=== PATIENT | female | born 1940 | race Caucasian/White ===

== ENCOUNTER 2024-05-25 21:44 | Inpatient (IN) | payer OTHER, MEDICARE ==
[2024-05-25 22:40] LABS: HEMATOCRIT 29.7 % (32.4-45.2); HEMOGLOBIN 9.6 G/dL (10.7-15.3); MCH 26.1 pg (25.7-33.7); MCHC 32.3 g/dl (32.0-36.0); MEAN PLT VOLUME 8.7 fl (7.5-11.1); PLATELET COUNT 238.4 10^3/uL (134-434); RBC 3.67 10^6/uL (3.60-5.2); RDW 18.2 % (11.6-15.6); WHITE BLOOD COUNT 6.9 10^3/uL (4.0-10.8)
[2024-05-25 22:46] LABS: PLATELET ESTIMATE ADEQUATE
[2024-05-25 22:59] LABS: ALBUMIN 4.2 g/dl (3.4-5.0); BILIRUBIN,TOTAL 0.7 mg/dl (0.2-1); CREATININE 1.1 mg/dl (0.6-1.3); POTASSIUM 4.3 mmol/L (3.5-5.1); TOT PROT 6.7 g/dl (6.4-8.2)
[2024-05-26] MEDS ORDERED: FUROSEMIDE 40 MG/4 ML INJECTABLE VIAL ONE (00:02)
[2024-05-26] MEDS: FUROSEMIDE 40 MG/4 ML INJECTABLE VIAL IVPUSH ONE (00:13)
[2024-05-26] MEDS ORDERED: ACETAMINOPHEN 325 MG TABLET (FP) ONE (01:22)
[2024-05-26] MEDS: ACETAMINOPHEN 325 MG TABLET (FP) PO ONE (01:25)
[2024-05-26] MEDS: SODIUM CHLORIDE FOR INHALATION 3 ML VIAL.NEB IH ONE (02:55)
[2024-05-26] MEDS: MAG HYDROX/AL HYDROX/SIMETH -MYLANTA- ORAL SUSPENSION PO ONE (06:56)
[2024-05-26 08:39] LABS: CALCIUM 9.2 mg/dl (8.5-10.1); CREATININE 1.4 mg/dl (0.6-1.3); MAGNESIUM 2.1 mg/dL (1.8-2.4)
[2024-05-26 09:10] LABS: BASO % 0.7 % (0-2.0); EOS % 4.4 % (0-4.5); HEMATOCRIT 32.5 % (32.4-45.2); HEMOGLOBIN 10.1 GM/dL (10.7-15.3); LYMPH % 19.1 % (8-40); MCH 25.2 pg (25.7-33.7); MCHC 30.9 g/dl (32.0-36.0); MEAN CELL VOLUME 81.5 fl (80-96); MEAN PLT VOLUME 8.4 fl (7.5-11.1); MONO % 9.6 % (3.8-10.2); NEUT % 66.2 % (42.8-82.8); PLATELET COUNT 260 10^3/uL (134-434); RBC 3.99 M/mm3 (3.60-5.2); RDW 18.9 % (11.6-15.6); WHITE BLOOD COUNT 6.9 K/mm3 (4.0-10.0)
[2024-05-26] MEDS: CEFTRIAXONE 1 G/50 ML PREMIX 50 ML IVPB SCH (10:52)
[2024-05-26] MEDS: MAG HYDROX/AL HYDROX/SIMETH 30 ML UNIT-DOSE CUP PO ONE (10:53)
[2024-05-26] MEDS: FUROSEMIDE 40 MG/4 ML INJECTABLE VIAL IVPUSH SCH (10:53)
[2024-05-26] MEDS: AZITHROMYCIN IVPB 250 MG in DEXTROSE 5%-WATER - 250 ML IVPB SCH (11:46)
[2024-05-26] MEDS: ALBUTEROL SO4 2.5/IPRATROPIUM 0.5 INH SOL 3 ML VIAL.NEB. NEB SCH (13:10)
[2024-05-26] MEDS: FAMOTIDINE 20 MG TABLET PO SCH (14:09)
[2024-05-26] MEDS: SERTRALINE HCL 50 MG TABLET (FP) PO SCH (14:09)
[2024-05-26] MEDS: DOXYCYCLINE INJECTION 100 MG in DEXTROSE 5%-WATER 100 ML IVPB SCH (14:10)
[2024-05-26 14:26] VITALS: BMI 29.9
[2024-05-26] MEDS: RIVAROXABAN 15 MG TABLET PO SCH (17:25)
[2024-05-26] MEDS: GABAPENTIN 100 MG CAPSULE PO ONE (21:40)
[2024-05-26] MEDS: clonazePAM 2 MG TABLET PO PRN (21:40)
[2024-05-26] MEDS: traZODone HCL 50 MG TABLET (FP) PO SCH (21:41)
[2024-05-26] MEDS: ATORVASTATIN CA 40 MG TABLET (FP) PO SCH (21:41)
[2024-05-26] MEDS ORDERED: HEPARIN NA (PORCINE) 5,000 UNITS/ML 1ML VIAL SQ SCH (22:00)
[2024-05-27 02:12] VITALS: RESP 18
[2024-05-27] MEDS: LEVOTHYROXINE NA 100 MCG TABLET (FP) PO SCH (06:54)
[2024-05-27 08:56] LABS: EPITHELIAL CELLS 0-5 /hpf
[2024-05-27 09:06] LABS: ALBUMIN 4.3 g/dl (3.4-5.0); BILIRUBIN,TOTAL 0.6 mg/dl (0.2-1); CREATININE 1.3 mg/dl (0.6-1.3); TOT PROT 6.9 g/dl (6.4-8.2)
[2024-05-27 11:08] LABS: BASO % 0.6 % (0-2.0); EOS % 7.3 % (0-4.5); HEMATOCRIT 44.4 % (32.4-45.2); HEMOGLOBIN 13.6 GM/dL (10.7-15.3); LYMPH % 23.9 % (8-40); MCH 25.2 pg (25.7-33.7); MCHC 30.5 g/dl (32.0-36.0); MEAN CELL VOLUME 82.4 fl (80-96); MEAN PLT VOLUME 8.6 fl (7.5-11.1); MONO % 8.9 % (3.8-10.2); NEUT % 59.3 % (42.8-82.8); PLATELET COUNT 171 10^3/uL (134-434); RBC 5.39 M/mm3 (3.60-5.2); RDW 19.6 % (11.6-15.6); WHITE BLOOD COUNT 5.6 K/mm3 (4.0-10.0)
[2024-05-27] MEDS: EMPAGLIFLOZIN (JARDIANCE) 10 MG TABLET PO SCH (12:41)
[2024-05-27] MEDS: FUROSEMIDE 40 MG TABLET (FP) PO SCH (12:41)
[2024-05-27] MEDS: IBUPROFEN 400 MG TABLET (FP) PO ONE (22:07)
[2024-05-28] MEDS: GABAPENTIN 100 MG CAPSULE PO ONE (01:50)
[2024-05-28 09:37] LABS: BILIRUBIN,TOTAL 0.5 mg/dl (0.2-1); CREATININE 1.4 mg/dl (0.6-1.3); MAGNESIUM 2.2 mg/dL (1.8-2.4); PHOSPHOROUS 4.7 (2.5-4.9); POTASSIUM 4.2 mmol/L (3.5-5.1); TOT PROT 6.7 g/dl (6.4-8.2)
[2024-05-28 11:48] LABS: BASO % 0.9 % (0-2.0); EOS % 11.1 % (0-4.5); LYMPH % 23.7 % (8-40); MCH 25.1 pg (25.7-33.7); MCHC 30.4 g/dl (32.0-36.0); MEAN CELL VOLUME 82.8 fl (80-96); MEAN PLT VOLUME 8.8 fl (7.5-11.1); MONO % 10.5 % (3.8-10.2); NEUT % 53.8 % (42.8-82.8); PLATELET COUNT 181 10^3/uL (134-434); RBC 5.56 M/mm3 (3.60-5.2); RDW 19.9 % (11.6-15.6); WHITE BLOOD COUNT 4.1 K/mm3 (4.0-10.0)
[2024-05-28 14:47] VITALS: BP 125/82; PULSE 69; TEMP 98.1
== END 2024-05-28 15:00 | disposition home or self-care (01) | DRG 291 ==
LOC: FER 21:44 → FM/S 05-26 01:00 → UNDOADMOB 05-26 01:11 → FM/S 05-26 01:11 → OBSVTOIN 05-26 12:52
PROVIDERS: ADMIT Internal Medicine; ATTEND Nurse Practitioner Family
DX: I13.0 Hypertensive heart and chronic kidney disease with heart failure and stage 1 through stage 4 chronic kidney disease, or unspecified chronic kidney disease (principal); I50.33 Acute on chronic diastolic (congestive) heart failure; J18.9 Pneumonia, unspecified organism; I48.92 Unspecified atrial flutter; I25.10 Atherosclerotic heart disease of native coronary artery without angina pectoris; F41.9 Anxiety disorder, unspecified; E78.5 Hyperlipidemia, unspecified; I27.20 Pulmonary hypertension, unspecified; I48.91 Unspecified atrial fibrillation; F25.9 Schizoaffective disorder, unspecified; G43.909 Migraine, unspecified, not intractable, without status migrainosus; F39 Unspecified mood [affective] disorder; E03.9 Hypothyroidism, unspecified; K21.9 Gastro-esophageal reflux disease without esophagitis; F41.8 Other specified anxiety disorders; Z96.641 Presence of right artificial hip joint; I08.1 Rheumatic disorders of both mitral and tricuspid valves; I48.0 Paroxysmal atrial fibrillation; N18.9 Chronic kidney disease, unspecified; Z85.850 Personal history of malignant neoplasm of thyroid; N28.1 Cyst of kidney, acquired
CPT/HCPCS: 36415; 71045-TC-FY; 76775-TC; 80048; 80053; 81003; 81015; 82962; 83735; 83880; 84100; 84439; 84443; 84484; 85025; 85027; 93005; 93306-TC; 94640; 99285-25; G0378